=== PATIENT | male | born 2000 | race Caucasian/White ===

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

== ENCOUNTER → 2020-01-02 | Outpatient (CLI) | payer BC | END | disposition home or self-care (01) | LOC: CVU 11:02 | PROVIDERS: ATTEND Internal Medicine Cardiovascular Disease | DX: R42 Dizziness and giddiness (principal); R00.2 Palpitations | CPT/HCPCS: 93306 ==

== ENCOUNTER 2020-03-19 10:37 | Day surgery (SDC) | payer BC ==
[~2020-03-19] VITALS: Ht 188 cm; Wt 160.8 kg
[2020-03-19 11:14] VITALS: BP 113/64
[2020-03-19] MEDS ORDERED: BUPIVACAINE/PF 0.5% ONE (11:15)
[2020-03-19] MEDS ORDERED: EPINEPHRINE 1 MG/ML, 1ML ONE (11:15)
[2020-03-19] MEDS ORDERED: CHLORHEXIDINE 15 ML UDC MM ONE (11:30)
[2020-03-19] MEDS ORDERED: PLEASE ENTER HEIGHT AND WEIGHT MC SCH (11:30)
[2020-03-19] MEDS ORDERED: LACTATED RINGERS 1,000 ML IV SCH (11:30)
[2020-03-19] MEDS ORDERED: MIDAZOLAM 1 MG/ML, 2ML ONE (12:09)
[2020-03-19] MEDS ORDERED: MEPERIDINE/PF 25MG/0.5ML IVPush PRN (13:00)
[2020-03-19] MEDS ORDERED: LABETALOL 5MG/ML, 20ML IV PRN (13:00)
[2020-03-19] MEDS ORDERED: HYDROmorphone 2 MG/ML, 1ML IVPush PRN (13:00)
[2020-03-19] MEDS ORDERED: KETOROLAC 30 MG/1 ML IV PRN (13:00)
[2020-03-19] MEDS ORDERED: ACETAMINOPHEN 325 MG TABLET PO PRN (13:00)
[2020-03-19] MEDS ORDERED: hydrALAzine 20 MG/ML, 1ML IV PRN (13:00)
[2020-03-19] MEDS ORDERED: OXYcodone 5 MG/5 ML ORAL.SOL UDC PO PRN (13:00)
[2020-03-19] MEDS ORDERED: FENTANYL PF 100 MCG/2ML IV PRN (13:00)
[2020-03-19] MEDS ORDERED: ALBUTEROL SULFATE 2.5 MG/3 ML NPPB PRN (13:00)
[2020-03-19] MEDS ORDERED: PROMETHAZINE 25 MG/ML, 1ML IV PRN (13:00)
[2020-03-19] MEDS ORDERED: DIAZEPAM 5 MG/ML, 2ML IVPush PRN (13:00)
[2020-03-19] MEDS ORDERED: FENTANYL PF 250 MCG/5ML ONE (13:37)
[2020-03-19] MEDS ORDERED: FENTANYL PF 100 MCG/2ML ONE (13:37)
[2020-03-19] MEDS ORDERED: ROCURONIUM 10MG/ML,5ML ONE (13:52)
[2020-03-19] MEDS ORDERED: DEXAMETHASONE 4 MG/ML, 1ML ONE (13:52)
[2020-03-19] MEDS ORDERED: PROPOFOL 10 MG/ML, 20ML ONE (13:52)
[2020-03-19] MEDS ORDERED: ONDANSETRON 2MG/ML, 2ML ONE (13:52)
[2020-03-19] MEDS ORDERED: SUCCINYLCHOLINE 20 MG/ML, 10ML ONE (13:52)
[2020-03-19] MEDS ORDERED: NEOSTIGMINE 1 MG/ML, 10ML ONE (13:52)
[2020-03-19] MEDS ORDERED: GLYCOPYRROLATE 0.2MG/1ML, 5ML ONE (13:52)
[2020-03-19] MEDS ORDERED: CEFAZOLIN 1,000 MG ONE (13:52)
[2020-03-19] MEDS ORDERED: HYDROmorphone 1 MG/ML, 1ML INJ ONE (14:07)
[2020-03-19] MEDS ORDERED: OXYcodone 5 MG/5 ML ORAL.SOL UDC ONE (14:08)
[2020-03-19] MEDS ORDERED: MEPERIDINE/PF 25MG/ML,1ML ONE (14:19)
[2020-03-19] MEDS ORDERED: HYDROcodone/APAP 7.5-325MG/15ML UDC PO PRN (14:30)
[2020-03-19] MEDS ORDERED: HYDROcodone/APAP 7.5-325MG/15ML UDC ONE (14:32)
== END 2020-03-19 17:45 | disposition home or self-care (01) ==
LOC: OUT 10:37
PROVIDERS: ATTEND Surgery
DX: L05.01 Pilonidal cyst with abscess (principal); E66.01 Morbid (severe) obesity due to excess calories; Z20.828 Contact with and (suspected) exposure to other viral communicable diseases; Z88.8 Allergy status to other drugs, medicaments and biological substances
CPT/HCPCS: 11771; 87070; 87075; 87077; 87147; 87186; 87205; 88304; 88305; J0171; J0330; J0690; J1100; J2175; J2250; J2405; J2704; J2710; J3010; J7120; U0003

== ENCOUNTER 2020-03-25 13:27 | Inpatient (IN) | payer BC ==
[~2020-03-25] VITALS: Ht 188 cm; Wt 162.0 kg
[2020-03-25 13:45] VITALS: BP 104/66
[2020-03-25 15:58] VITALS: BP_SYST 100; BP_SYST 108; BP_SYST 94; BP_DIAS 60; BP_DIAS 66; BP_DIAS 70
[2020-03-25] MEDS ORDERED: VANCOMYCIN PER PHARMACY MC PRN (16:00)
[2020-03-25] MEDS ORDERED: BISACODYL 10 MG SUPP PR PRN (16:00)
[2020-03-25] MEDS ORDERED: ONDANSETRON ODT 4 MG PO PRN (16:00)
[2020-03-25] MEDS: SODIUM CHLORIDE 0.9% 1,000 ML IV SCH (16:00)
[2020-03-25] MEDS ORDERED: morphine SULFATE 10 MG/ML, 1ML IVPush PRN (16:00)
[2020-03-25] MEDS ORDERED: ACETAMINOPHEN 325 MG TABLET PO PRN (16:00)
[2020-03-25] MEDS ORDERED: POLYETHYLENE GLYCOL 17 GM PACKET PO PRN (16:00)
[2020-03-25] MEDS ORDERED: LABETALOL 5MG/ML, 20ML IVPush PRN (16:00)
[2020-03-25] MEDS ORDERED: ONDANSETRON 2MG/ML, 2ML IVPush PRN (16:00)
[2020-03-25] MEDS: ENOXAPARIN 40 MG/0.4 ML SQ SCH (16:00)
[2020-03-25] MEDS ORDERED: ENALAPRILAT 1.25 MG/ML, 2ML IVPush PRN (16:00)
[2020-03-25] MEDS ORDERED: MELATONIN 5 MG TABLET PO PRN (16:00)
[2020-03-25] MEDS: PIPERACILLIN/TAZO/PMX 3.375GM 50 ML IV SCH ×2 (16:29→22:13)
[2020-03-25] MEDS ORDERED: PHARMACOKINETIC CONSULTATION MC ONE (16:30)
[2020-03-25] MEDS ORDERED: VANCOMYCIN 2,500 MG in SODIUM CHLORIDE 0.9% 500 ML IV ONE (16:30)
[2020-03-25] MEDS ORDERED: PHARMACOKINETIC MONITORING MC PRN (16:30)
[2020-03-25 16:50] LABS: MEAN CORPUSCULAR HEMOGLOBIN 28.9 pg (27.5-34.5); MEAN CORPUSCULAR HGB CONC 33.8 g/dL (33.2-36.2); MEAN PLATELET VOLUME 7.1 fL (7.4-10.4); PLATELET COUNT 377 x10^3/uL (130-400); RED BLOOD COUNT 4.67 x10^6/uL (4.38-5.82); RED CELL DISTRIBUTION WIDTH 14.7 % (9.4-14.8)
[2020-03-25 16:56] LABS: ANION GAP 8 mmol/L (5-15); CHLORIDE 107 mmol/L (98-107); CREATININE 0.66 mg/dL (0.7-1.3)
[2020-03-25 17:03] LABS: C-REACTIVE PROTEIN, QUANT 8.34 mg/dL (0.02-0.49)
[2020-03-25 17:35] LABS: MD YES
[2020-03-25 17:37] LABS: BAND#(MANUAL) 0.81 x10^3/uL; BANDS%(MANUAL) 6 % (0-7); EOS#(MANUAL) 0.14 x10^3/uL (0.0-0.8); EOS% (MANUAL) 1 % (1-7); LYMPH#(MANUAL) 2.16 x10^3/uL (1-6.1); LYMPHS% (MANUAL) 16 % (22-44); MONOS#(MANUAL) 1.35 x10^3/uL (0.3-2.7); MONOS% (MANUAL) 10 % (2-9); MYELOCYTES# (MANUAL) 0.14 x10^3/uL (0-0); MYELOCYTES% (MANUAL) 1 % (0-0); SEG#(MANUAL) 8.91 x10^3/uL (1.8-8); SEGS% (MANUAL) 66 % (42-75)
[2020-03-25 17:38] LABS: <PLATELET ESTIMATE> ADEQUATE; <PLT MORPHOLOGY> NORMAL PLT MORPH; ANISOCYTOSIS 1+; POLYCHROMASIA 1+
[2020-03-25 18:51] VITALS: BP 108/58
[2020-03-25 18:55] LABS: HCT (SEDRATE) 39.9 % (39.2-51.8)
[2020-03-25] MEDS: HYDROcodone/APAP 5/325 TABLET PO PRN (22:17)
[2020-03-26] MEDS: VANCOMYCIN 2,000 MG in SODIUM CHLORIDE 0.9% 500 ML IV SCH ×3 (00:55→16:36)
[2020-03-26 01:31] VITALS: BP 121/66
[2020-03-26] MEDS: PIPERACILLIN/TAZO/PMX 3.375GM 50 ML IV SCH ×3 (04:20→19:06)
[2020-03-26 07:00] VITALS: BP 115/63
[2020-03-26 07:36] LABS: ANION GAP 6 mmol/L (5-15); CALCIUM 8.6 mg/dL (8.5-10.1); CHLORIDE 108 mmol/L (98-107)
[2020-03-26 07:37] LABS: CREATININE 0.61 mg/dL (0.7-1.3)
[2020-03-26 07:38] LABS: BASOPHILS % (AUTO) 1 % (0-1); EOSINOPHILS % (AUTO) 2 % (1-7); LYMPHOCYTES % (AUTO) 18 % (22-44); MEAN CORPUSCULAR HEMOGLOBIN 29.4 pg (27.5-34.5); MEAN CORPUSCULAR HGB CONC 33.9 g/dL (33.2-36.2); MEAN PLATELET VOLUME 7.1 fL (7.4-10.4); MONOCYTES % (AUTO) 8 % (2-9); NEUTROPHILS % (AUTO) 71 % (42-75); PLATELET COUNT 368 x10^3/uL (130-400); RED BLOOD COUNT 4.18 x10^6/uL (4.38-5.82); RED CELL DISTRIBUTION WIDTH 14.7 % (9.4-14.8)
[2020-03-26 07:42] LABS: MD NO
[2020-03-26] MEDS: SODIUM CHLORIDE 0.9% 1,000 ML IV SCH (08:45)
[2020-03-26] MEDS: SENNA/DOCUSATE TABLET PO SCH (08:45)
[2020-03-26] MEDS ORDERED: LIDOCAINE 4% TOPICAL SOLUTION 50 ML TP ONE (11:30)
[2020-03-26 12:47] VITALS: BP 121/60
[2020-03-26] MEDS: ENOXAPARIN 40 MG/0.4 ML SQ SCH (15:42)
[2020-03-26 19:14] VITALS: BP 96/43
[2020-03-26] MEDS: HYDROcodone/APAP 5/325 TABLET PO PRN (22:49)
[2020-03-27 00:27] VITALS: BP 120/70
[2020-03-27] MEDS: PIPERACILLIN/TAZO/PMX 3.375GM 50 ML IV SCH ×3 (01:02→12:31)
[2020-03-27] MEDS: VANCOMYCIN 2,000 MG in SODIUM CHLORIDE 0.9% 500 ML IV SCH ×2 (01:37→09:02)
[2020-03-27 07:25] VITALS: BP 121/76
[2020-03-27] MEDS: HYDROcodone/APAP 5/325 TABLET PO PRN (07:26)
[2020-03-27] MEDS: SENNA/DOCUSATE TABLET PO SCH (09:00)
[2020-03-27] MEDS ORDERED: AMOX1TAB64 PO (12:33)
[2020-03-27] MEDS ORDERED: DOXY100T23 PO (12:33)
[2020-03-27 13:20] VITALS: BP 135/81
== END 2020-03-27 16:18 | disposition home or self-care (01) | DRG 872 ==
LOC: EDIP 13:34 → 4NE 13:36
PROVIDERS: ADMIT Hospitalist; ATTEND Hospitalist
DX: A41.9 Sepsis, unspecified organism (principal); Z68.42 Body mass index [BMI] 45.0-49.9, adult; L05.01 Pilonidal cyst with abscess; B96.20 Unspecified Escherichia coli [E. coli] as the cause of diseases classified elsewhere; B95.62 Methicillin resistant Staphylococcus aureus infection as the cause of diseases classified elsewhere; I10 Essential (primary) hypertension; E66.01 Morbid (severe) obesity due to excess calories; Z88.2 Allergy status to sulfonamides; Z88.8 Allergy status to other drugs, medicaments and biological substances; Z79.899 Other long term (current) drug therapy
CPT/HCPCS: 36415; 80048; 80202; 83605; 84145; 85025; 85651; 86140; 87040; 87070; 87077; 87147; 87186; 87205; G0378; J1650; J2543; J3370; J2270; J7030; J7040

== ENCOUNTER → 2020-05-13 | Outpatient (CLI) | payer BC ==
[~2020-05-13] MED LIST changes: +AMOX1TAB64 PO; +DOXY100T23 PO; +HYDR-1067 PO; -HYDR-3240 PO
== END | disposition home or self-care (01) ==
LOC: RAD 10:25
PROVIDERS: ATTEND Surgery
DX: R05 Cough (principal)
CPT/HCPCS: 71046

== ENCOUNTER → 2020-09-16 | Outpatient (CLI) | payer BC ==
[~2020-09-16] MED LIST changes: -HYDR-1067 PO; +HYDR-2214 PO; +NONE PER PT; +SULF-23 PO; -SULF1TAB24 PO
== END | disposition home or self-care (01) ==
LOC: STAR 10:05
PROVIDERS: ATTEND Surgery
DX: Z01.818 Encounter for other preprocedural examination (principal); L05.01 Pilonidal cyst with abscess; L98.499 Non-pressure chronic ulcer of skin of other sites with unspecified severity; R00.0 Tachycardia, unspecified; Z20.822 Contact with and (suspected) exposure to COVID-19
CPT/HCPCS: 93005; U0003; U0005

== ENCOUNTER 2020-09-22 10:02 | Inpatient (IN) | payer BC ==
[~2020-09-22] VITALS: Ht 188 cm; Wt 171.5 kg
[2020-09-22] MEDS ORDERED: LACTATED RINGERS 1,000 ML IV SCH (10:30)
[2020-09-22] MEDS ORDERED: CHLORHEXIDINE 15 ML UDC PO ONE (10:30)
[2020-09-22] MEDS ORDERED: FENTANYL PF 250 MCG/5ML ONE ×2 (12:25→15:57)
[2020-09-22] MEDS ORDERED: PROPOFOL 50 ML ONE ×2 (12:25→14:59)
[2020-09-22] MEDS ORDERED: MIDAZOLAM 1 MG/ML, 2ML ONE ×2 (12:25→15:56)
[2020-09-22] MEDS ORDERED: BUPIVACAINE/PF 0.5% ONE (12:27)
[2020-09-22] MEDS ORDERED: EPINEPHRINE 1 MG/ML, 1ML ONE (12:27)
[2020-09-22] MEDS ORDERED: FENTANYL PF 100 MCG/2ML IV PRN (13:00)
[2020-09-22] MEDS ORDERED: EPHEDRINE 50 MG/ML, 1ML IM PRN (13:00)
[2020-09-22] MEDS ORDERED: morphine SULFATE 10 MG/ML, 1ML IVPush PRN (13:00)
[2020-09-22] MEDS ORDERED: EPHEDRINE 50 MG/ML, 1ML IVPush PRN (13:00)
[2020-09-22] MEDS ORDERED: DIPHENHYDRAMINE 50 MG/ML, 1ML IVPush PRN (13:00)
[2020-09-22] MEDS ORDERED: OXYcodone 5 MG/5 ML ORAL.SOL UDC PO PRN (13:00)
[2020-09-22] MEDS ORDERED: ONDANSETRON 2MG/ML, 2ML IVPush PRN ×2 (13:00→16:00)
[2020-09-22] MEDS ORDERED: LABETALOL 5MG/ML, 20ML IV PRN (13:00)
[2020-09-22] MEDS ORDERED: MEPERIDINE/PF 25MG/0.5ML IVPush PRN (13:00)
[2020-09-22] MEDS ORDERED: PROMETHAZINE 25 MG/ML, 1ML IVPush PRN (13:00)
[2020-09-22] MEDS ORDERED: DIAZEPAM 5 MG/ML, 2ML IVPush PRN (13:00)
[2020-09-22] MEDS ORDERED: HYDROmorphone 1 MG/ML, 1ML INJ ONE ×2 (14:37→17:04)
[2020-09-22] MEDS ORDERED: SUCCINYLCHOLINE 20 MG/ML, 10ML ONE (14:40)
[2020-09-22] MEDS ORDERED: ROCURONIUM 10MG/ML,5ML ONE (14:40)
[2020-09-22] MEDS ORDERED: PROPOFOL 10 MG/ML, 20ML ONE ×3 (14:40→15:14)
[2020-09-22] MEDS ORDERED: CEFAZOLIN 1,000 MG ONE ×3 (14:40)
[2020-09-22] MEDS ORDERED: HYDROmorphone PCA 30 MG/30 ML IV PRN (16:00)
[2020-09-22] MEDS ORDERED: FENTANYL PF 100 MCG/2ML ONE (16:45)
[2020-09-22 19:31] VITALS: BP 137/85
[2020-09-22] MEDS: KETOROLAC 30 MG/1 ML IV SCH (20:42)
[2020-09-22] MEDS: POTASSIUM CHLORIDE 20 MEQ in D5%-0.45% NACL 1,000 ML IV SCH (20:43)
[2020-09-22] MEDS: CEFAZOLIN PMX 1GM/50ML 50 ML IVPB SCH (20:43)
[2020-09-23 00:20] VITALS: BP 115/66
[2020-09-23] MEDS: KETOROLAC 30 MG/1 ML IV SCH ×4 (02:58→21:01)
[2020-09-23 04:35] VITALS: BP 103/67
[2020-09-23] MEDS: CEFAZOLIN PMX 1GM/50ML 50 ML IVPB SCH (04:57)
[2020-09-23 05:36] LABS: BASOPHILS % (AUTO) 1 % (0-1); EOSINOPHILS % (AUTO) 0 % (1-7); LYMPHOCYTES % (AUTO) 10 % (22-44); MEAN CORPUSCULAR HEMOGLOBIN 28.8 pg (27.5-34.5); MEAN CORPUSCULAR HGB CONC 34.4 g/dL (33.2-36.2); MONOCYTES % (AUTO) 7 % (2-9); NEUTROPHILS % (AUTO) 83 % (42-75); PLATELET COUNT 362 x10^3/uL (130-400); RED CELL DISTRIBUTION WIDTH 15.1 % (9.4-14.8)
[2020-09-23 05:50] LABS: ANION GAP 8 mmol/L (5-15); CALCIUM 8.7 mg/dL (8.5-10.1); CHLORIDE 106 mmol/L (98-107)
[2020-09-23 05:51] LABS: CREATININE 0.52 mg/dL (0.7-1.3)
[2020-09-23] MEDS: POTASSIUM CHLORIDE 20 MEQ in D5%-0.45% NACL 1,000 ML IV SCH ×2 (06:20→16:10)
[2020-09-23] MEDS: ENOXAPARIN 40 MG/0.4 ML SQ SCH (06:21)
[2020-09-23 08:08] VITALS: BP 106/66
[2020-09-23 14:10] VITALS: BP 98/97
[2020-09-23 19:58] VITALS: BP 113/70
[2020-09-24] MEDS: POTASSIUM CHLORIDE 20 MEQ in D5%-0.45% NACL 1,000 ML IV SCH ×2 (01:36→09:32)
[2020-09-24 02:30] VITALS: BP 132/80
[2020-09-24] MEDS: KETOROLAC 30 MG/1 ML IV SCH ×3 (03:03→16:00)
[2020-09-24] MEDS: ENOXAPARIN 40 MG/0.4 ML SQ SCH (05:59)
[2020-09-24 06:50] VITALS: BP 115/74
[2020-09-24] MEDS ORDERED: OXYcodone IR 5MG TABLET PO PRN (09:10)
[2020-09-24] MEDS ORDERED: SENNA/DOCUSATE TABLET PO PRN (09:10)
[2020-09-24] MEDS: OXYcodone/APAP 5/325MG TABLET PO PRN ×2 (11:13→16:00)
[2020-09-24 13:44] VITALS: BP 117/75
[2020-09-24] MEDS ORDERED: ENOXAPARIN 30 MG/0.3 ML SQ SCH (21:00)
== END 2020-09-24 16:40 | disposition home or self-care (01) | DRG 572 ==
LOC: OUT 10:02 → ORIP 15:42 → 4NE 17:55
PROVIDERS: ADMIT Surgery; ATTEND Surgery
PROC: 0JB90ZZ Excision of Buttock Subcutaneous Tissue and Fascia, Open Approach (ICD-10-PCS; principal; 2020-09-22 12:00)
DX: L05.01 Pilonidal cyst with abscess (principal); L98.412 Non-pressure chronic ulcer of buttock with fat layer exposed; L05.02 Pilonidal sinus with abscess; Z88.8 Allergy status to other drugs, medicaments and biological substances
CPT/HCPCS: 36415; S0020; 80048; 82040; 85025; 88305; C1729; G0378; J0171; J0690; J1170; J1650; J1885; J2250; J2704; J3010; J3480; J0330; J7120

== ENCOUNTER → 2020-10-08 | Outpatient (CLI) | payer BC ==
[~2020-10-08] MED LIST changes: +CIPROFLOXACIN PO
== END | disposition home or self-care (01) ==
LOC: STAR 09:33
PROVIDERS: ATTEND Surgery
DX: Z20.822 Contact with and (suspected) exposure to COVID-19 (principal); L05.01 Pilonidal cyst with abscess; L98.499 Non-pressure chronic ulcer of skin of other sites with unspecified severity
CPT/HCPCS: U0003; U0005

== ENCOUNTER 2020-10-12 11:37 | Inpatient (IN) | payer BC ==
[~2020-10-12] VITALS: Ht 188 cm; Wt 153.4 kg
[~2020-10-12 11:37] MED LIST changes: +BUPIVACAINE/PF 0.5% ONE; +EPINEPHRINE 1 MG/ML, 1ML ONE
[2020-10-12] MEDS ORDERED: GLYCOPYRROLATE 0.2MG/1ML, 5ML ONE (11:57)
[2020-10-12] MEDS ORDERED: DEXAMETHASONE 4 MG/ML, 1ML ONE (11:57)
[2020-10-12] MEDS ORDERED: PROPOFOL 10 MG/ML, 20ML ONE (11:57)
[2020-10-12] MEDS ORDERED: SUCCINYLCHOLINE 20 MG/ML, 10ML ONE (11:57)
[2020-10-12] MEDS ORDERED: ONDANSETRON 2MG/ML, 2ML ONE (11:57)
[2020-10-12] MEDS ORDERED: ROCURONIUM 10MG/ML,5ML ONE (11:57)
[2020-10-12] MEDS ORDERED: NEOSTIGMINE 1 MG/ML, 10ML ONE (11:57)
[2020-10-12] MEDS ORDERED: METR250T18 PO (12:07)
[2020-10-12] MEDS ORDERED: LACTATED RINGERS 1,000 ML IV SCH (12:30)
[2020-10-12] MEDS ORDERED: CHLORHEXIDINE 15 ML UDC PO ONE (12:30)
[2020-10-12] MEDS ORDERED: FENTANYL PF 250 MCG/5ML ONE (13:58)
[2020-10-12] MEDS ORDERED: MIDAZOLAM 1 MG/ML, 2ML ONE (13:58)
[2020-10-12] MEDS ORDERED: PROMETHAZINE 25 MG/ML, 1ML IVPush PRN (14:30)
[2020-10-12] MEDS ORDERED: hydrALAzine 20 MG/ML, 1ML IV PRN (14:30)
[2020-10-12] MEDS ORDERED: MEPERIDINE/PF 25MG/0.5ML IVPush PRN (14:30)
[2020-10-12] MEDS ORDERED: ACETAMINOPHEN 325 MG TABLET PO PRN (14:30)
[2020-10-12] MEDS ORDERED: HALOPERIDOL 5 MG/ML IV PRN (14:30)
[2020-10-12] MEDS ORDERED: LABETALOL 5MG/ML, 20ML IV PRN (14:30)
[2020-10-12] MEDS ORDERED: OXYcodone 5 MG/5 ML ORAL.SOL UDC PO PRN (14:30)
[2020-10-12] MEDS ORDERED: DIPHENHYDRAMINE 50 MG/ML, 1ML IVPush PRN (14:30)
[2020-10-12] MEDS ORDERED: CEFOTETAN 1 GM ONE (14:32)
[2020-10-12] MEDS ORDERED: CEFOTETAN 2 GM ONE (14:32)
[2020-10-12] MEDS ORDERED: NEOSPORIN OINT. PKT 1 PACKET ONE (17:07)
[2020-10-12] MEDS ORDERED: PHARMACY INSTRUCTION MC PRN (17:30)
[2020-10-12] MEDS ORDERED: ONDANSETRON 2MG/ML, 2ML IVPush PRN (17:30)
[2020-10-12] MEDS ORDERED: HYDROmorphone PCA 30 MG/30 ML IV PRN (17:30)
[2020-10-12] MEDS ORDERED: FENTANYL PF 100 MCG/2ML ONE (17:36)
[2020-10-12] MEDS ORDERED: MEPERIDINE/PF 25MG/ML,1ML ONE (17:36)
[2020-10-12] MEDS ORDERED: OXYcodone 5 MG/5 ML ORAL.SOL UDC ONE (17:36)
[2020-10-12] MEDS ORDERED: HYDROmorphone 1 MG/ML, 1ML INJ ONE (17:56)
[2020-10-12] MEDS: FENTANYL PF 100 MCG/2ML IV PRN ×2 (17:57→18:03)
[2020-10-12] MEDS: HYDROmorphone 1 MG/ML, 1ML INJ IVPush PRN ×2 (18:09→18:23)
[2020-10-12] MEDS: POTASSIUM CHLORIDE 20 MEQ in D5%-LACTATED RINGERS 1,000 ML IV SCH (18:44)
[2020-10-12 18:45] VITALS: BP 143/80
[2020-10-12] MEDS: METRONIDAZOLE PMX 500MG/100ML 100 ML IVPB SCH (19:56)
[2020-10-12] MEDS: PIPERACILLIN/TAZO 3.375 GM in DEXTROSE 5% 50 ML IVPB SCH (21:26)
[2020-10-13 00:23] VITALS: BP 125/76
[2020-10-13] MEDS: METRONIDAZOLE PMX 500MG/100ML 100 ML IVPB SCH ×3 (03:05→20:02)
[2020-10-13 03:58] VITALS: BP 103/63
[2020-10-13] MEDS: PIPERACILLIN/TAZO 3.375 GM in DEXTROSE 5% 50 ML IVPB SCH ×3 (04:59→22:01)
[2020-10-13] MEDS: POTASSIUM CHLORIDE 20 MEQ in D5%-LACTATED RINGERS 1,000 ML IV SCH ×2 (05:23→19:06)
[2020-10-13] MEDS: ENOXAPARIN 40 MG/0.4 ML SQ SCH (05:23)
[2020-10-13 05:59] LABS: BASOPHILS % (AUTO) 0 % (0-1); EOSINOPHILS % (AUTO) 0 % (1-7); LYMPHOCYTES % (AUTO) 8 % (22-44); MEAN CORPUSCULAR HEMOGLOBIN 28.7 pg (27.5-34.5); MEAN CORPUSCULAR HGB CONC 33.7 g/dL (33.2-36.2); MEAN PLATELET VOLUME 7.3 fL (7.4-10.4); MONOCYTES % (AUTO) 6 % (2-9); NEUTROPHILS % (AUTO) 86 % (42-75); PLATELET COUNT 411 x10^3/uL (130-400); RED BLOOD COUNT 4.04 x10^6/uL (4.38-5.82); RED CELL DISTRIBUTION WIDTH 15.7 % (9.4-14.8)
[2020-10-13 06:00] LABS: ALBUMIN 3.1 g/dL (3.4-5.0); ANION GAP 10 mmol/L (5-15); CALCIUM 8.6 mg/dL (8.5-10.1); CHLORIDE 107 mmol/L (98-107); CREATININE 0.61 mg/dL (0.7-1.3)
[2020-10-13 06:45] VITALS: BP 105/59
[2020-10-13 12:05] VITALS: BP 134/68
[2020-10-13 20:09] VITALS: BP 132/66
[2020-10-14 01:52] VITALS: BP 120/60
[2020-10-14] MEDS: METRONIDAZOLE PMX 500MG/100ML 100 ML IVPB SCH ×3 (04:34→20:44)
[2020-10-14] MEDS: POTASSIUM CHLORIDE 20 MEQ in D5%-LACTATED RINGERS 1,000 ML IV SCH ×2 (06:01→19:28)
[2020-10-14] MEDS: PIPERACILLIN/TAZO 3.375 GM in DEXTROSE 5% 50 ML IVPB SCH ×3 (06:12→22:08)
[2020-10-14] MEDS: ENOXAPARIN 40 MG/0.4 ML SQ SCH (06:13)
[2020-10-14 07:49] VITALS: BP 128/79
[2020-10-14 09:15] LABS: BASOPHILS % (AUTO) 1 % (0-1); EOSINOPHILS % (AUTO) 1 % (1-7); LYMPHOCYTES % (AUTO) 22 % (22-44); MEAN CORPUSCULAR HEMOGLOBIN 28.8 pg (27.5-34.5); MEAN CORPUSCULAR HGB CONC 34.2 g/dL (33.2-36.2); MEAN PLATELET VOLUME 6.6 fL (7.4-10.4); MONOCYTES % (AUTO) 12 % (2-9); NEUTROPHILS % (AUTO) 65 % (42-75); PLATELET COUNT 328 x10^3/uL (130-400); RED BLOOD COUNT 3.88 x10^6/uL (4.38-5.82); RED CELL DISTRIBUTION WIDTH 15.7 % (9.4-14.8)
[2020-10-14 09:25] LABS: ANION GAP 7 mmol/L (5-15); CALCIUM 8.7 mg/dL (8.5-10.1); CHLORIDE 109 mmol/L (98-107); CREATININE 0.47 mg/dL (0.7-1.3)
[2020-10-14 14:23] VITALS: BP 114/70
[2020-10-14 20:13] VITALS: BP 103/70
[2020-10-14] MEDS: OXYcodone IR 5MG TABLET PO PRN (20:44)
[2020-10-15 01:58] VITALS: BP 109/77
[2020-10-15] MEDS: METRONIDAZOLE PMX 500MG/100ML 100 ML IVPB SCH ×3 (03:51→19:59)
[2020-10-15] MEDS: OXYcodone IR 5MG TABLET PO PRN ×4 (04:32→18:07)
[2020-10-15 05:06] LABS: BASOPHILS % (AUTO) 1 % (0-1); EOSINOPHILS % (AUTO) 2 % (1-7); LYMPHOCYTES % (AUTO) 22 % (22-44); MEAN CORPUSCULAR HEMOGLOBIN 28.6 pg (27.5-34.5); MEAN CORPUSCULAR HGB CONC 33.9 g/dL (33.2-36.2); MEAN PLATELET VOLUME 7.2 fL (7.4-10.4); MONOCYTES % (AUTO) 10 % (2-9); NEUTROPHILS % (AUTO) 65 % (42-75); PLATELET COUNT 321 x10^3/uL (130-400); RED BLOOD COUNT 3.86 x10^6/uL (4.38-5.82); RED CELL DISTRIBUTION WIDTH 15.9 % (9.4-14.8)
[2020-10-15 05:13] LABS: ANION GAP 7 mmol/L (5-15); CALCIUM 8.6 mg/dL (8.5-10.1); CHLORIDE 107 mmol/L (98-107); CREATININE 0.39 mg/dL (0.7-1.3)
[2020-10-15] MEDS: PIPERACILLIN/TAZO 3.375 GM in DEXTROSE 5% 50 ML IVPB SCH ×3 (06:03→21:23)
[2020-10-15] MEDS: POTASSIUM CHLORIDE 20 MEQ in D5%-LACTATED RINGERS 1,000 ML IV SCH ×2 (06:03→19:19)
[2020-10-15] MEDS: ENOXAPARIN 40 MG/0.4 ML SQ SCH ×2 (06:03→18:06)
[2020-10-15 07:28] VITALS: BP 111/72
[2020-10-15 13:09] VITALS: BP 121/70
[2020-10-15 19:32] VITALS: BP 117/81
[2020-10-15] MEDS ORDERED: DIPHENHYDRAMINE 25 MG CAPSULE PO PRN ×2 (22:00)
[2020-10-16 02:09] VITALS: BP 106/70
[2020-10-16] MEDS: PIPERACILLIN/TAZO 3.375 GM in DEXTROSE 5% 50 ML IVPB SCH ×4 (03:07→21:20)
[2020-10-16] MEDS: METRONIDAZOLE PMX 500MG/100ML 100 ML IVPB SCH ×3 (03:49→20:00)
[2020-10-16] MEDS: OXYcodone IR 5MG TABLET PO PRN ×4 (05:18→21:53)
[2020-10-16] MEDS: ENOXAPARIN 40 MG/0.4 ML SQ SCH ×2 (05:18→18:00)
[2020-10-16 06:33] VITALS: BP 118/75
[2020-10-16] MEDS: POTASSIUM CHLORIDE 20 MEQ in D5%-LACTATED RINGERS 1,000 ML IV SCH ×2 (08:00→20:12)
[2020-10-16 13:54] VITALS: BP 132/79
[2020-10-16 19:48] VITALS: BP 99/60
[2020-10-17 00:39] VITALS: BP 109/72
[2020-10-17] MEDS: PIPERACILLIN/TAZO 3.375 GM in DEXTROSE 5% 50 ML IVPB SCH ×4 (03:21→22:02)
[2020-10-17] MEDS: METRONIDAZOLE PMX 500MG/100ML 100 ML IVPB SCH ×3 (04:15→19:58)
[2020-10-17] MEDS: ENOXAPARIN 40 MG/0.4 ML SQ SCH ×2 (05:45→17:44)
[2020-10-17] MEDS: POTASSIUM CHLORIDE 20 MEQ in D5%-LACTATED RINGERS 1,000 ML IV SCH (08:31)
[2020-10-17 08:41] VITALS: BP 112/70
[2020-10-17] MEDS: OXYcodone IR 5MG TABLET PO PRN ×3 (10:07→22:02)
[2020-10-17 14:57] VITALS: BP 137/85
[2020-10-17 19:29] VITALS: BP 101/77
[2020-10-18 02:02] VITALS: BP 109/74
[2020-10-18] MEDS: PIPERACILLIN/TAZO 3.375 GM in DEXTROSE 5% 50 ML IVPB SCH ×4 (03:29→21:58)
[2020-10-18] MEDS: METRONIDAZOLE PMX 500MG/100ML 100 ML IVPB SCH ×3 (04:45→19:57)
[2020-10-18] MEDS: ENOXAPARIN 40 MG/0.4 ML SQ SCH ×2 (06:15→18:01)
[2020-10-18 08:14] VITALS: BP 114/78
[2020-10-18 13:39] VITALS: BP 138/85
[2020-10-18] MEDS: OXYcodone IR 5MG TABLET PO PRN ×2 (16:55→21:59)
[2020-10-18 19:01] VITALS: BP 120/88
[2020-10-19 00:45] VITALS: BP 106/71
[2020-10-19] MEDS: PIPERACILLIN/TAZO 3.375 GM in DEXTROSE 5% 50 ML IVPB SCH ×4 (03:47→22:41)
[2020-10-19] MEDS: METRONIDAZOLE PMX 500MG/100ML 100 ML IVPB SCH ×3 (04:40→20:58)
[2020-10-19] MEDS: ENOXAPARIN 40 MG/0.4 ML SQ SCH ×2 (05:59→18:04)
[2020-10-19] MEDS: OXYcodone IR 5MG TABLET PO PRN ×3 (05:59→22:48)
[2020-10-19 07:07] VITALS: BP 117/70
[2020-10-19 12:55] VITALS: BP 104/65
[2020-10-19 19:05] VITALS: BP 119/79
[2020-10-20] MEDS: PIPERACILLIN/TAZO 3.375 GM in DEXTROSE 5% 50 ML IVPB SCH ×4 (04:10→21:33)
[2020-10-20 04:12] VITALS: BP 99/66
[2020-10-20] MEDS: METRONIDAZOLE PMX 500MG/100ML 100 ML IVPB SCH ×3 (05:05→19:53)
[2020-10-20] MEDS: ENOXAPARIN 40 MG/0.4 ML SQ SCH ×2 (06:39→17:36)
[2020-10-20 07:14] VITALS: BP 93/61
[2020-10-20] MEDS: OXYcodone IR 5MG TABLET PO PRN ×2 (11:16→21:33)
[2020-10-20 13:07] VITALS: BP 113/74
[2020-10-20 19:02] VITALS: BP 109/69
[2020-10-21 02:01] VITALS: BP 136/71
[2020-10-21] MEDS: PIPERACILLIN/TAZO 3.375 GM in DEXTROSE 5% 50 ML IVPB SCH ×4 (03:40→22:08)
[2020-10-21] MEDS: METRONIDAZOLE PMX 500MG/100ML 100 ML IVPB SCH (04:21)
[2020-10-21] MEDS: ENOXAPARIN 40 MG/0.4 ML SQ SCH ×2 (05:34→18:31)
[2020-10-21 06:15] LABS: BASOPHILS % (AUTO) 1 % (0-1); EOSINOPHILS % (AUTO) 3 % (1-7); LYMPHOCYTES % (AUTO) 30 % (22-44); MEAN CORPUSCULAR HGB CONC 33.8 g/dL (33.2-36.2); MEAN PLATELET VOLUME 7.3 fL (7.4-10.4); MONOCYTES % (AUTO) 12 % (2-9); NEUTROPHILS % (AUTO) 55 % (42-75); PLATELET COUNT 344 x10^3/uL (130-400); RED BLOOD COUNT 4.17 x10^6/uL (4.38-5.82); RED CELL DISTRIBUTION WIDTH 15.8 % (9.4-14.8)
[2020-10-21 06:30] LABS: ANION GAP 10 mmol/L (5-15); CALCIUM 9.4 mg/dL (8.5-10.1); CHLORIDE 107 mmol/L (98-107); CREATININE 0.54 mg/dL (0.7-1.3)
[2020-10-21 08:29] VITALS: BP 90/62
[2020-10-21 13:28] VITALS: BP 93/59
[2020-10-21] MEDS: OXYcodone IR 5MG TABLET PO PRN (18:31)
[2020-10-21 19:22] VITALS: BP 119/71
[2020-10-22 03:00] VITALS: BP 105/60
[2020-10-22] MEDS: PIPERACILLIN/TAZO 3.375 GM in DEXTROSE 5% 50 ML IVPB SCH ×4 (04:24→22:34)
[2020-10-22] MEDS: ENOXAPARIN 40 MG/0.4 ML SQ SCH ×2 (05:31→18:31)
[2020-10-22 07:59] VITALS: BP 113/75
[2020-10-22] MEDS: OXYcodone IR 5MG TABLET PO PRN (11:32)
[2020-10-22 14:30] VITALS: BP 113/63
[2020-10-22 20:19] VITALS: BP 112/73
[2020-10-23 02:03] VITALS: BP 100/52
[2020-10-23] MEDS: PIPERACILLIN/TAZO 3.375 GM in DEXTROSE 5% 50 ML IVPB SCH ×4 (04:09→22:08)
[2020-10-23] MEDS: ENOXAPARIN 40 MG/0.4 ML SQ SCH ×2 (06:00→18:23)
[2020-10-23 06:30] VITALS: BP 115/69
[2020-10-23 14:00] VITALS: BP 114/70
[2020-10-23 19:59] VITALS: BP 100/65
[2020-10-24 01:31] VITALS: BP 103/69
[2020-10-24] MEDS: ACETAMINOPHEN 500 MG TABLET PO PRN (01:40)
[2020-10-24] MEDS: PIPERACILLIN/TAZO 3.375 GM in DEXTROSE 5% 50 ML IVPB SCH ×4 (04:00→22:03)
[2020-10-24] MEDS: ENOXAPARIN 40 MG/0.4 ML SQ SCH ×2 (05:53→18:26)
[2020-10-24 08:23] VITALS: BP 92/58
[2020-10-24 14:56] VITALS: BP 123/72
[2020-10-24 15:30] LABS: CREATININE 0.47 mg/dL (0.7-1.3)
[2020-10-24 19:12] VITALS: BP 104/68
[2020-10-25 01:26] VITALS: BP 109/63
[2020-10-25] MEDS: PIPERACILLIN/TAZO 3.375 GM in DEXTROSE 5% 50 ML IVPB SCH ×4 (04:10→21:38)
[2020-10-25] MEDS: ACETAMINOPHEN 500 MG TABLET PO PRN (04:17)
[2020-10-25] MEDS: ENOXAPARIN 40 MG/0.4 ML SQ SCH ×2 (05:48→18:10)
[2020-10-25 08:28] VITALS: BP 106/70
[2020-10-25 12:18] VITALS: BP 101/60
[2020-10-25] MEDS: OXYcodone IR 5MG TABLET PO PRN (13:49)
[2020-10-25 19:32] VITALS: BP 107/68
[2020-10-26 01:01] VITALS: BP 101/68
[2020-10-26] MEDS: PIPERACILLIN/TAZO 3.375 GM in DEXTROSE 5% 50 ML IVPB SCH ×4 (03:26→21:57)
[2020-10-26 05:09] LABS: BASOPHILS % (AUTO) 1 % (0-1); EOSINOPHILS % (AUTO) 1 % (1-7); LYMPHOCYTES % (AUTO) 31 % (22-44); MEAN CORPUSCULAR HEMOGLOBIN 29.1 pg (27.5-34.5); MEAN CORPUSCULAR HGB CONC 33.9 g/dL (33.2-36.2); MEAN PLATELET VOLUME 7.9 fL (7.4-10.4); MONOCYTES % (AUTO) 14 % (2-9); NEUTROPHILS % (AUTO) 53 % (42-75); PLATELET COUNT 354 x10^3/uL (130-400); RED BLOOD COUNT 4.42 x10^6/uL (4.38-5.82); RED CELL DISTRIBUTION WIDTH 16.7 % (9.4-14.8)
[2020-10-26 05:10] LABS: ANION GAP 4 mmol/L (5-15); CHLORIDE 109 mmol/L (98-107); CREATININE 0.58 mg/dL (0.7-1.3)
[2020-10-26] MEDS: ENOXAPARIN 40 MG/0.4 ML SQ SCH ×2 (06:14→17:57)
[2020-10-26 07:48] VITALS: BP 108/71
[2020-10-26] MEDS: OXYcodone IR 5MG TABLET PO PRN (11:40)
[2020-10-26 12:16] VITALS: BP 135/81
[2020-10-26 19:54] VITALS: BP 104/70
[2020-10-27 00:27] VITALS: BP 109/57
[2020-10-27] MEDS: PIPERACILLIN/TAZO 3.375 GM in DEXTROSE 5% 50 ML IVPB SCH ×4 (03:54→23:14)
[2020-10-27] MEDS: ENOXAPARIN 40 MG/0.4 ML SQ SCH ×2 (06:19→17:42)
[2020-10-27 07:06] VITALS: BP 103/69
[2020-10-27] MEDS: OXYcodone IR 5MG TABLET PO PRN ×2 (10:13→22:22)
[2020-10-27 14:08] VITALS: BP 119/71
[2020-10-27 18:22] VITALS: BP 109/61
[2020-10-27] MEDS: ACETAMINOPHEN 500 MG TABLET PO PRN (21:14)
[2020-10-28 00:49] VITALS: BP 111/69
[2020-10-28] MEDS: PIPERACILLIN/TAZO 3.375 GM in DEXTROSE 5% 50 ML IVPB SCH ×3 (05:22→18:13)
[2020-10-28] MEDS: ENOXAPARIN 40 MG/0.4 ML SQ SCH ×2 (05:23→18:13)
[2020-10-28 08:30] VITALS: BP 116/73
[2020-10-28] MEDS: OXYcodone IR 5MG TABLET PO PRN (10:47)
[2020-10-28 14:59] VITALS: BP 96/60
[2020-10-28 19:39] VITALS: BP 121/73
[2020-10-28] MEDS ORDERED: AQUAPHOR NATURAL HEALING OINT 50GM TP PRN (22:00)
[2020-10-29] MEDS: PIPERACILLIN/TAZO 3.375 GM in DEXTROSE 5% 50 ML IVPB SCH ×3 (00:06→12:37)
[2020-10-29 01:21] VITALS: BP 108/65
[2020-10-29] MEDS: OXYcodone IR 5MG TABLET PO PRN (02:43)
[2020-10-29] MEDS: ENOXAPARIN 40 MG/0.4 ML SQ SCH (06:32)
[2020-10-29 08:27] VITALS: BP 105/69
[2020-10-29 13:59] VITALS: BP 115/57
== END 2020-10-29 18:15 | disposition home health service (06) | DRG 857 ==
LOC: OUT 11:37 → 4NE 18:40 → OUT 23:00 → INTOOBSV 23:14 → 4NE 23:14 → OBSVTOIN 10-13 15:06 → 4NE 10-19 08:00
PROVIDERS: ADMIT Surgery; ATTEND Surgery
PROC: 0KBN0ZZ Excision of Right Hip Muscle, Open Approach (ICD-10-PCS; 2020-10-12)
PROC: 3E1038Z Irrigation of Skin and Mucous Membranes using Irrigating Substance, Percutaneous Approach (ICD-10-PCS; 2020-10-12)
PROC: 0JXB0ZC Transfer Perineum Subcutaneous Tissue and Fascia with Skin, Subcutaneous Tissue and Fascia, Open Approach (ICD-10-PCS; 2020-10-12)
PROC: 0KBP0ZZ Excision of Left Hip Muscle, Open Approach (ICD-10-PCS; principal; 2020-10-12 13:30)
DX: T81.49XA Infection following a procedure, other surgical site, initial encounter (principal); L05.01 Pilonidal cyst with abscess; K60.3 Anal fistula; Y84.8 Other medical procedures as the cause of abnormal reaction of the patient, or of later complication, without mention of misadventure at the time of the procedure; Y92.89 Other specified places as the place of occurrence of the external cause; Z88.8 Allergy status to other drugs, medicaments and biological substances; Z88.2 Allergy status to sulfonamides
CPT/HCPCS: 36415; S0020; 80048; 82040; 82565; 85025; G0378; J0171; J1100; J1170; J1650; J2175; J2250; J2405; J2543; J2704; J2710; J3010; J0330; J7120; Q0163